=== PATIENT | female | born 1985 | race Hispanic/Latino ===

== ENCOUNTER 2020-07-12 20:19 | Emergency (ER) | payer MEDICARE ==
[~2020-07-12] VITALS: Ht 157.5 cm; Wt 89.8 kg
[2020-07-12] MEDS ORDERED: CEFDINIR300 MG PO (21:45)
[2020-07-12 21:54] VITALS: BP 112/76
== END 2020-07-12 21:54 | disposition home or self-care (01) ==
LOC: FSED 20:48
DX: J20.9 Acute bronchitis, unspecified (principal); R05 Cough; M54.5 Low back pain; M25.551 Pain in right hip; W18.30XA Fall on same level, unspecified, initial encounter
CPT/HCPCS: 71046; 99283

== ENCOUNTER 2021-10-18 01:09 | Emergency (ER) | payer MEDICARE ==
[~2021-10-18] VITALS: Ht 154.9 cm; Wt 92.1 kg
[~2021-10-18 01:09] MED LIST: AUGMENTIN 500-1 EACH PO; CEFDINIR300 MG PO; NAPROSYN500 MG PO
[2021-10-18] MEDS ORDERED: SODIUM CHLORIDE 0.9% 1000ML 1,000 ML IV STA (01:26)
[2021-10-18] MEDS ORDERED: ONDANSETRON HCL INJ 2MG/ML 2ML 2 MG/ML VIAL IV ONE (01:30)
[2021-10-18] MEDS ORDERED: FAMOTIDINE 20 MG/2 ML VIAL IV ONE ×2 (01:30→01:43)
[2021-10-18] MEDS ORDERED: ONDANSETRON HCL INJ 2MG/ML 2ML 2 MG/ML VIAL ONE (01:43)
[2021-10-18] MEDS ORDERED: SODIUM CHLORIDE 0.9% 1000ML 1,000 ML ONE (01:43)
[2021-10-18] MEDS ORDERED: SODIUM CHLORIDE 0.9% 50ML 50 ML ONE (01:57)
[2021-10-18] MEDS ORDERED: IOPAMIDOL 370 MG/ML 200 ML INFUS..BTL INJ ONE (01:57)
[2021-10-18] MEDS ORDERED: FAMOTIDINE20 MG PO (02:48)
[2021-10-18] MEDS ORDERED: DICYCLOMINE HCL20 MG PO (02:48)
[2021-10-18] MEDS ORDERED: ONDANSETRON ODT4 MG PO (02:48)
[2021-10-18 02:55] VITALS: BP 140/90
== END 2021-10-18 02:55 | disposition home or self-care (01) ==
LOC: FSED 01:18
DX: R10.32 Left lower quadrant pain (principal); K52.9 Noninfective gastroenteritis and colitis, unspecified; R11.0 Nausea
CPT/HCPCS: 74177; 80053; 81003; 81025; 85025; 96374; 96376; 99283; J2405; J7030; Q9967

== ENCOUNTER 2025-05-02 20:59 | Emergency (ER) | payer MEDICARE ==
[~2025-05-02] VITALS: Ht 157.5 cm; Wt 81.6 kg
[~2025-05-02 20:59] MED LIST changes: +DICYCLOMINE HCL20 MG PO; +FAMOTIDINE20 MG PO; +ONDANSETRON ODT4 MG PO; +TOPAMAX25 MG PO
[2025-05-02 21:17] VITALS: PULSE 100; RESP 18; TEMP 98.5
[2025-05-02] MEDS ORDERED: DIPHENHYDRAMINE25 M2 PO (21:39)
[2025-05-02] MEDS ORDERED: DOXYCYCLINE HY100 MG PO (21:39)
[2025-05-02] MEDS ORDERED: VENTOLIN HFA18 GM INH (21:39)
[2025-05-02] MEDS: DIPHENHYDRAMINE HCL 25 MG CAP PO ONE (21:50)
[2025-05-02] MEDS: DEXAMETHASONE SOD PHOS INJ 4 MG/ML SDV IM ONE (21:50)
[2025-05-02 22:05] VITALS: BP 131/64; PULSE 100; RESP 18; TEMP 98.5; O2SAT 100
== END 2025-05-02 22:05 | disposition home or self-care (01) ==
LOC: FSED 21:17
DX: L03.312 Cellulitis of back [any part except buttock and flank] (principal); L03.221 Cellulitis of neck; L03.113 Cellulitis of right upper limb; L23.7 Allergic contact dermatitis due to plants, except food; L29.9 Pruritus, unspecified; I10 Essential (primary) hypertension; J45.909 Unspecified asthma, uncomplicated; F32.A Depression, unspecified; M54.9 Dorsalgia, unspecified; G89.29 Other chronic pain
CPT/HCPCS: 96372; 99282; J1100